=== PATIENT | female | born 1950 | race Caucasian/White ===

== ENCOUNTER 2024-02-17 08:13 | Emergency (ER) | payer OTHER, SELFPAY ==
[2024-02-17 08:16] VITALS: BP 203/100
[2024-02-17 09:00] VITALS: BP 195/97
[2024-02-17 09:10] LABS: % Basophils 0.7 % (0-2); % Eosinophils 2.3 % (0-6); % Immature Granulocytes 0.2 % (0-0.5); % Monocytes 7.6 % (1.7-9.3); % Neutrophils 68.2 % (42.2-75.2); Absolute Eosinophils 0.1 10^3/uL (0-0.7); Absolute Lymphocytes 1.2 10^3/uL (1.2-3.4); Absolute Monocytes 0.4 10^3/uL (0.1-0.6); Absolute Neutrophils 3.9 10^3/uL (1.4-6.5); Hematocrit 40.3 % (37.0-47.0); Hemoglobin 13.5 g/dL (12.0-16.0); Mean Corp Hgb Conc. 33.5 g/dL (33.0-37.0); Mean Corpuscular Hgb 29.6 pg (27.0-31.0); Mean Corpuscular Volume 88.4 fL (81.0-99.0); Mean Platelet Volume 10.4 fL (7.4-10.4); Nucleated Red Blood Cells % 0 %; Platelet Count 207 10^3/uL (130-400); Red Blood Cell Count 4.56 10^6/uL (4.20-5.40); Red Cell Dist. Width 12.9 % (11.5-14.5); White Blood Cell Count 5.7 10^3/uL (4.8-10.8)
--- NOTE | 2024-02-17 09:12 | ED.GENMED ---
History of Present Illness
General
Chief Complaint: Chest Pain
Source: patient
Exam Limitations: none
Time Seen by Provider: 02/17/24 08:37
Nursing documentation reviewed up to this point in time: agreed with
History of Present Illness
History of Present Illness:
Patient is a [id number]-year-old female presents to the ER for evaluation of chest pain. Patient reports a little over an hour ago she was at work and lifting of grapefruits and then developed sharp left-sided chest pain. In addition she felt
pain in her arm was nauseous sweaty and had a little shortness of breath. Symptoms lasted for 2-3 minutes. Symptoms resolved spontaneously. She is currently pain-free. He has no cardiac history. She does not smoke. She reports is a family
history of vascular disease and hypertension but no CAD that she is aware of.
She does not smoke.
Past History
Past History
ED Past Medical History: Other (MS)
Social History
Tobacco: Non-smoker
Personal:
Living: with family
Review of Systems
Review of Systems
Allergies reviewed?: Yes
All Other Systems: ROS reviewed and negative except as documented in HPI and ROS
Constitutional: Reports no symptoms
Cardiac: Reports chest pain (currently resolved )
ABD/GI: Reports no symptoms
Musculoskeletal: Reports no symptoms
Skin: Reports no symptoms
Neurological: Reports no symptoms
Psychiatric: Reports no symptoms
Phy Exam
General Physical Exam
General Presentation: no apparent distress
General age: appears stated age
General Skin: warm and dry
General Habitus: normal
General Mental: alert
General Hydration: appears well hydrated
Cardiovascular Exam
Cardiovascular Exam: regular rate/rhythm, no murmur and normal peripheral pulses
Pulmonary Exam
Pulmonary Exam: lungs clear and no respiratory distress
Gastrointestinal Exam
Gastrointestinal Exam: non tender and soft
Neurological Exam
Neurological Exam: alert and oriented x3
Musculoskeletal Exam
Musculoskeletal Exam: full ROM
Skin Exam
Skin Exam: normal color and warm/dry
Psychiatric Exam
Psychiatric Exam: normal mood/affect
Scores
Heart Score for Chest Pain Patients
STEMI patient?: Not applicable
Course
Orders/Labs/Results
Orders:
Orders
02/17/24 08:13
EKG [Electrocardiogram (*1)] Urgent
Reason for Study: Chest Pain
02/17/24 08:14
EKG- Treatment ONCE
02/17/24 08:58
IV Insert/Care/Rem.- Treatment PRN
02/17/24 08:59
Cardiac Monitoring- Treatment ONCE
CR Chest - 2 Views Urgent
Comment:
Reason For Exam: cp
02/17/24 09:03
Complete Blood Count/With Diff Urgent
Comprehensive Metabolic Panel Urgent
Troponin I Urgent
02/17/24 10:26
CT Chest/abd/pelvis Angio W/wo Urgent
Comment:
Reason For Exam: cp /arm pain abnormal chest xray
02/17/24 11:55
Electrocardiogram (*1) Stat
Reason for Study: Other
Other Reason for Exam: chest pain
EKG- Treatment ONCE
02/17/24 11:59
Troponin I Urgent
Abnormal Lab Results
02/17/24
09:03
BUN 22 H mg/dl
(10-07)
02/17/24 09:03
02/17/24 09:03
Vital Signs
Initial and Last Documented VS:
Initial Vital Signs
Temp Pulse Resp BP Pulse Ox
98.8 F 75 16 203/100 97
02/17/24 08:16 02/17/24 08:16 02/17/24 08:16 02/17/24 08:16 02/17/24 08:16
Last Documented Vital Signs
Temp Pulse Resp BP Pulse Ox
98.8 F 72 14 187/105 95
02/17/24 08:16 02/17/24 12:45 02/17/24 12:45 02/17/24 13:03 02/17/24 12:45
On Call consulted with Physician
On Call consulted with physician?: Yes
Name of Physician Consulted: mani
MDM/Problems Addressed
Differential Diagnosis Includes:
Not limited to unstable angina, musculoskeletal pain
MDM/Problems Addressed:
Patient is a 73-year-old female who presents to the ER for evaluation of chest pain that occurred while lifting a heavy box at work. She did have some nausea and sweaty and radiation to left arm. She has no cardiac history. Pain resolved prior to
arrival. No acute findings on EKG patient is a monitored here and has remained chest pain-free. She has had 2 negative prior troponins. Incidentally radiology made note of a torturous thoracic aorta and therefore CTA was done which shows mild
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 Will DC with chest pain hotline. In addition patient to follow-up for aneurysmal dilatation with CT surgery as
well.
*Critical Care Note
Total Time (30-74mins, 75-104mins- exclusive of procedures): Not Applicable
ED Attending Note
-
Portions of this chart may have been created with voice recognition software.� Occasional wrong word or��sound alike� substitutions may have occurred due to the inherent limitations of voice recognition software.
Discharge Plan
Departure
Patient Disposition: Home (Routine Discharge)
Patient with high blood pressure during this ER visit?: Yes
Condition: Fair
Covid-19: Not Applicable
Discharge Problem:
Chest pain
Instructions: Chest Pain DCA Follow Up
Prescriptions:
No Action
pentoxifylline 400 MG tablet extended release
400 mg PO TID
teriflunomide [Aubagio] 14 MG tablet
14 mg PO DAILY
Patient Comments:
06/28/14: Confirmed with [facility]
clobetasol-emollient 60 GM cream
60 gm TP BID
doxycycline hyclate 100 MG capsule
100 mg PO Q12 Qty: 16 0RF
ondansetron HCl 4 MG tablet
4 mg PO Q8HPRN PRN (Reason: nausea/vomiting) Qty: 10 0RF
Referrals:
Christin Deshpande DO [Family Provider] -
Elly Salas MD [Active] -
Cristino Griffin MD [Active] -
Activity Restrictions/Additional Instructions:
As discussed you were placed on the chest pain hotline which means you should receive a call from the office in the next 1 or 2 days if you do not please call them to schedule an appointment soon as possible. You will also need to follow-up for
findings on your CAT scan of your chest which includes mild aneurysmal dilatation of the ascending thoracic aorta. Follow-up with cardiothoracic surgery for this.
Return if any worsening of symptoms.
Interventions
Interventions:
*Risk Screen - Suicide Last Done: 02/17/24 08:16
*General Assessment Last Done: 02/17/24 08:16
*Neglect/Abuse Screening Last Done: 02/17/24 08:16
ED- Fall Risk Assessment Last Done: 02/17/24 13:12
*ED COVID-19 Vaccine History Last Done: 02/17/24 08:49
*Nursing Disposition Last Done: 02/17/24 13:12
ED- Cardiac Assessment Last Done: 02/17/24 08:48
Discharge Date and Time
Discharge Date/Time: 02/17/24 13:12
Print Language: YORUBA
[2024-02-17 09:26] LABS: ALT (SGPT) 13 U/L (0-35); AST (SGOT) 22 U/L (14-36); Albumin 4.4 g/dl (3.5-5.0); Alkaline Phosphatase 89 U/L (38-126); Blood Urea Nitrogen 22 mg/dl (7-17); Calcium 9.3 mg/dl (8.4-10.2); Carbon Dioxide 26 mmol/L (22-30); Chloride 104 mmol/L (98-107); Glucose 96 mg/dl (70-99); Potassium 4.7 mmol/L (3.5-5.1); Sodium 140 mmol/L (135-145); Total Bilirubin 0.9 mg/dl (0.2-1.3); Total Protein 7.4 g/dl (6.3-8.2); eGFR 59.86
[2024-02-17 09:37] LABS: Troponin I < 0.012 ng/ml
[2024-02-17 11:06] VITALS: BP 199/84
[2024-02-17 12:00] VITALS: BP 176/80
[2024-02-17 12:35] LABS: Troponin I < 0.012 ng/ml
[2024-02-17 13:03] VITALS: BP 187/105
== END 2024-02-17 13:12 | disposition home or self-care (01) ==
LOC: EMR 08:13
PROVIDERS: Nurse Practitioner; EMERGENCY PHYSICIAN Student in an Organized Health Care Education/Training Program; FAMILY PHYSICIAN Family Medicine
DX: R07.89 Other chest pain (principal); I71.21 Aneurysm of the ascending aorta, without rupture; Z82.49 Family history of ischemic heart disease and other diseases of the circulatory system
CPT/HCPCS: 99285; 71046; 71275; 74174; 80053; 84484; 85025; 93005; Q9967